=== PATIENT | female | born 2005 | race Caucasian/White ===

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

== ENCOUNTER 2025-04-24 05:32 | Inpatient (IN) | payer MEDICARE, MEDICAID ==
[~2025-04-24] VITALS: Ht 152.4 cm; Wt 95.7 kg
[~2025-04-24 05:32] MED LIST changes: +ONDA-104 PO
[2025-04-24] MEDS ORDERED: GuaiFENesin/D-METHORPHAN [SUGAR-FREE] 200-20MG/10 ML SYRUP UDCUP PO PRN (15:30)
[2025-04-24] MEDS ORDERED: OLANZapine 5 MG RAPDIS TABLET PO PRN (15:30)
[2025-04-24] MEDS ORDERED: LORazepam 2 MG TABLET PO PRN ×2 (15:30)
[2025-04-24] MEDS ORDERED: LOPERAMIDE HCL 2 MG CAPSULE PO PRN (15:30)
[2025-04-24] MEDS ORDERED: ZOLPIDEM TARTRATE 10 MG TABLET PO PRN ×3 (15:30)
[2025-04-24] MEDS ORDERED: MAG HYDROX/ALUMINUM HYD/SIMETH ES 30 ML SUSPENSION UDCUP PO PRN (15:30)
[2025-04-24] MEDS ORDERED: HydrOXYzine PAMOATE 50 MG CAPSULE PO PRN (15:30)
[2025-04-24] MEDS ORDERED: MAGNESIUM HYDROXIDE SUSPENSION 30 ML UDCUP PO PRN (15:30)
[2025-04-24] MEDS ORDERED: BENZ-247 PO (15:32)
[2025-04-24] MEDS ORDERED: HYDR-3831 PO (15:32)
[2025-04-24] MEDS ORDERED: FLUO20CA30 PO (15:32)
[2025-04-24] MEDS ORDERED: CARI4.5C PO (15:32)
[2025-04-24 16:50] VITALS: BP 121/73; PULSE 69; RESP 18; TEMP 98.2; O2SAT 99
[2025-04-24 16:52] VITALS: BP 120/78; PULSE 68; RESP 18; TEMP 97.6; O2SAT 97
[2025-04-24] MEDS: THIAMINE 100 MG TABLET PO SCH (16:54)
[2025-04-24] MEDS ORDERED: PNEUMOCOCCAL VACCINE POLYVALENT 0.5 ML SYRINGE [PPSV23] IM. ONE (19:00)
[2025-04-24] MEDS: MELATONIN 5 MG TABLET PO SCH (20:05)
[2025-04-24] MEDS: OLANZapine 5 MG RAPDIS TABLET PO SCH (20:05)
[2025-04-24 20:22] VITALS: BP 102/60; PULSE 67; RESP 16; TEMP 97.9; O2SAT 99
[2025-04-25 08:36] VITALS: BP 107/60; PULSE 72; RESP 18; TEMP 97.4; O2SAT 72
[2025-04-25] MEDS: FLUoxetine HCL 20 MG CAPSULE PO SCH (08:59)
[2025-04-25] MEDS: FOLIC ACID 1 MG TABLET PO SCH (08:59)
[2025-04-25] MEDS: MULTIVITAMINS WITH MINERALS, THERAPEUTIC TABLET PO SCH (08:59)
[2025-04-25 09:46] LABS: BASOPHILS % (AUTO) 0.5 % (0.0-2.0); EOSINOPHILS % (AUTO) 2.8 % (1.0-6.0); HEMATOCRIT 39.8 % (36-46); HEMOGLOBIN 13.2 g/dL (12.0-16.0); LYMPHOCYTES # (AUTO) 2.2 K/uL (1.0-4.8); LYMPHOCYTES % (AUTO) 24.5 % (22.0-44.0); MEAN CORPUSCULAR HEMOGLOBIN 28.6 pg (26.0-34.0); MEAN CORPUSCULAR HGB CONC 33.1 G/dL (31.0-37.0); MEAN CORPUSCULAR VOLUME 87 fL (80-100); MONOCYTES # (AUTO) 0.5 K/uL (0.1-1.0); MONOCYTES % (AUTO) 5.3 % (2.0-9.0); NEUTROPHILS # (AUTO) 6.1 K/uL (1.8-7.7); NEUTROPHILS % (AUTO) 66.9 % (40.0-70.0); PLATELET COUNT (AUTO) 276 K/uL (150-450); RED BLOOD CELL COUNT(AUTO) 4.59 MIL/uL (4.00-5.20); RED CELL DISTRIBUTION WIDTH 14.4 % (11.5-14.5); WHITE BLOOD COUNT (AUTO) 9.1 K/uL (4.5-11.0)
[2025-04-25 10:01] LABS: APPEARANCE,URINE CLEAR (CLEAR); BILIRUBIN,URINE NEGATIVE (NEGATIVE); COLOR,URINE LIGHT YELLOW (YELLOW); GLUCOSE, URINE (UA) NEGATIVE (NEGATIVE); KETONES,URINE NEGATIVE (NEGATIVE); LEUKOCYTE ESTERASE ,URINE TRACE (NEGATIVE); NITRATE,URINE NEGATIVE (NEGATIVE); OCCULT BLOOD,URINE NEGATIVE (NEGATIVE); PROTEIN,URINE NEGATIVE (NEGATIVE); SPECIFIC GRAVITIY, URINE 1.017 (1.003-1.030); UROBILINOGEN,URINE <=1.0 mg/dL (<=1.0)
[2025-04-25 10:04] LABS: PREGNANCY RESULT, SERUM NEGATIVE (NEGATIVE)
[2025-04-25 10:06] LABS: BACTERIA,URINE None Seen /HPF (None Seen); RBC,URINE None Seen /HPF (0-2); SQUAMOUS EPITHELIAL CELL,UR Rare /LPF (None Seen); WBC,URINE 0-2 /HPF (0-5)
[2025-04-25 10:08] LABS: ALCOHOL, URINE DRUG SCREEN NEGATIVE (NEGATIVE); AMPHET/METH SCREEN,URINE NEGATIVE (NEGATIVE); BARBITURATE SCREEN, URINE NEGATIVE (NEGATIVE); BENZODIAZEPINES SCREEN,URINE NEGATIVE (NEGATIVE); CANNABINOID SCREEN,URINE NEGATIVE (NEGATIVE); COCAINE SCREEN,URINE NEGATIVE (NEGATIVE); METHADONE SCREEN, URINE NEGATIVE (NEGATIVE); OPIATE SCREEN,URINE NEGATIVE (NEGATIVE); PHENCYCLIDINE SCREEN,URINE NEGATIVE (NEGATIVE)
[2025-04-25 10:15] LABS: HEMOGLOBIN A1C 5.2 % (3.8-5.6)
[2025-04-25 10:23] LABS: ALANINE AMINOTRANSFERASE 18 U/L (12-78); ALBUMIN 3.1 g/dL (3.4-5.0); ALKALINE PHOSPHATASE 67 U/L (46-116); ANION GAP 7 mmol/L (8-16); ASPARTATE AMINOTRANSFERASE 13 U/L (15-37); BILIRUBIN,TOTAL 0.2 mg/dL (0.1-1.0); CALCIUM, TOTAL 8.7 mg/dL (8.8-10.5); CARBON DIOXIDE 28 mmol/L (22-29); CHLORIDE 103 mmol/L (98-107); CHOLESTEROL 162 mg/dL (131-200); CREATININE 0.83 mg/dL (0.60-1.30); FREE T4 (FREE THYROXINE) 0.78 ng/dL (0.76-1.46); GLOMERULAR FILTR. RATE CALC > 60 mL/min (>60); GLUCOSE,RANDOM 164 mg/dL (70-110); HCG,QUANTITATIVE < 1 mIU/mL (0-6); HDL CHOLESTEROL 41 mg/dL (40-60); LDL CHOL (CALC.) 98 mg/dL (0-130); POTASSIUM 3.7 mmol/L (3.5-5.1); SODIUM SERUM 138 mmol/L (136-145); T4 (THYROXINE) 6.8 mcg/dL (4.7-13.3); THYROID STIMULATING HORMONE 2.82 uIU/mL (0.36-3.74); TOTAL PROTEIN, SERUM 6.4 g/dL (6.4-8.2); TRIGLYCERIDES 116 mg/dL (15-150); UREA NITROGEN, BLOOD 11 mg/dL (7-18)
[2025-04-25 17:30] LABS: RAPID PLASMA REAGIN NONREACTIVE (NONREACTIVE)
[2025-04-25] MEDS: LURASIDONE HCL 40 MG TABLET PO SCH (20:21)
[2025-04-25] MEDS: LURASIDONE HCL 20 MG TABLET PO PRN (20:21)
[2025-04-25 21:17] VITALS: BP 104/64; PULSE 80; RESP 18; TEMP 97.6; O2SAT 99
[2025-04-26 08:36] VITALS: BP 111/59; PULSE 80; RESP 16; TEMP 98.2; O2SAT 100
[2025-04-26] MEDS: TUBERCULIN, PURIFIED PROTEIN DERIVATIVE 5 TU/0.1 ML SYRINGE ID ONE (14:29)
[2025-04-26 20:00] VITALS: BP 112/68; PULSE 76; RESP 17; TEMP 97.6; O2SAT 98
[2025-04-26] MEDS: haloperidoL 5 MG TABLET PO PRN (20:00)
[2025-04-26] MEDS: LURASIDONE HCL 60 MG TABLET PO SCH (20:02)
[2025-04-27 08:22] VITALS: BP 107/60; PULSE 79; RESP 16; TEMP 98.2; O2SAT 99
[2025-04-27] MEDS: FLUoxetine HCL 20 MG CAPSULE PO SCH (08:36)
[2025-04-27] MEDS: ATOMOXETINE HCL 18 MG CAPSULE PO SCH (08:37)
[2025-04-27] MEDS ORDERED: ATOMOXETINE HCL 10 MG CAPSULE PO SCH (09:00)
[2025-04-27 20:57] VITALS: BP 114/64; PULSE 88; RESP 16; TEMP 97.2; O2SAT 100
[2025-04-28 08:19] VITALS: BP 134/78; PULSE 92; RESP 16; TEMP 97.7; O2SAT 98
[2025-04-28 20:33] VITALS: BP 114/81; PULSE 87; RESP 16; TEMP 97.7; O2SAT 99
[2025-04-29 08:25] VITALS: BP 125/89; PULSE 66; RESP 17; TEMP 97.3; O2SAT 97
[2025-04-29 21:47] VITALS: BP 117/71; PULSE 83; RESP 17; O2SAT 99
[2025-04-30 08:14] VITALS: BP 101/60; PULSE 81; RESP 16; TEMP 97.3; O2SAT 96
[2025-04-30 09:15] VITALS: RESP 17; O2SAT 98
[2025-04-30] MEDS: ACETAMINOPHEN 325 MG TABLET PO PRN (09:15)
[2025-04-30 10:15] VITALS: RESP 16; O2SAT 97
[2025-04-30 20:40] VITALS: BP 103/66; RESP 20; TEMP 97.7
[2025-05-01 07:29] VITALS: BP 127/66; PULSE 127; RESP 18; TEMP 97.9; O2SAT 97
[2025-05-01 08:21] VITALS: BP 129/53; PULSE 90; RESP 16; TEMP 97.6; O2SAT 97
[2025-05-01] MEDS: LORazepam 1 MG TABLET PO PRN (10:17)
[2025-05-01 11:13] VITALS: BP 128/80; PULSE 78; RESP 16; TEMP 97.3; O2SAT 98
[2025-05-01] MEDS ORDERED: FLUO-418 PO (14:35)
[2025-05-01] MEDS ORDERED: LURA60TA PO (14:35)
[2025-05-01] MEDS ORDERED: MELA5TAB40 PO (14:35)
[2025-05-01] MEDS ORDERED: ATOM25CA8 PO (14:35)
[2025-05-01 18:10] VITALS: BP 112/74; PULSE 83; RESP 16; TEMP 97.8; O2SAT 98
[2025-05-01 19:10] VITALS: RESP 16
[2025-05-01 20:25] VITALS: BP 131/87; PULSE 88; RESP 16; TEMP 97.5; O2SAT 100
[2025-05-02 10:47] VITALS: BP 122/75; PULSE 80; RESP 17; TEMP 97.7
[2025-05-02 11:47] VITALS: BP 116/69; PULSE 76; RESP 16; TEMP 98
[2025-05-02] MEDS: ATOMOXETINE HCL 25 MG CAPSULE PO SCH (14:10)
[2025-05-02] MEDS: LURASIDONE HCL 80 MG TABLET PO SCH (21:03)
[2025-05-02 22:15] VITALS: RESP 18
[2025-05-03 10:31] VITALS: BP 124/68; PULSE 75; RESP 19; TEMP 98; O2SAT 98
[2025-05-03 11:17] VITALS: BP 121/67; PULSE 85; RESP 18; TEMP 97.9; O2SAT 100
[2025-05-03] MEDS: LURASIDONE HCL 20 MG TABLET PO SCH (22:24)
[2025-05-03 22:52] VITALS: BP_SYST 110; BP_DIAS 70; BP_DIAS 71; PULSE 76; PULSE 85; RESP 16; RESP 18; TEMP 97.5; O2SAT 100; O2SAT 99
[2025-05-03 23:33] VITALS: BP 106/60; PULSE 80; RESP 18; TEMP 97.9; O2SAT 100
[2025-05-04 05:33] VITALS: BP 100/63; PULSE 78; RESP 16; TEMP 97.5; O2SAT 100
[2025-05-04] MEDS: FLUoxetine HCL 20 MG CAPSULE PO SCH (09:54)
[2025-05-04] MEDS: NEOMYCIN/POLYMYXIN B/HYDROCORT 10 ML OTIC SOLUTION AU SCH (09:56)
[2025-05-04 10:17] VITALS: BP 106/72; PULSE 77; RESP 17; TEMP 97.8; O2SAT 98
[2025-05-04] MEDS: NYSTATIN 500,000 UNITS/5 ML SUSPENSION UDCUP PO SCH (21:32)
[2025-05-04 22:09] VITALS: BP 115/60; PULSE 88; RESP 16; TEMP 98.3; O2SAT 98
[2025-05-05 07:02] VITALS: BP 108/65; PULSE 72; RESP 16; TEMP 97.7; O2SAT 99
[2025-05-05 20:36] VITALS: BP 131/79; PULSE 68; RESP 17; TEMP 97.9; O2SAT 96
[2025-05-05] MEDS: PROMETHAZINE HCL 25 MG TABLET PO PRN (21:41)
[2025-05-06 10:55] VITALS: BP 114/83; PULSE 84; RESP 17; TEMP 98.1; O2SAT 97
[2025-05-06 20:30] VITALS: BP 115/62; PULSE 79; RESP 17; TEMP 97.8; O2SAT 98
[2025-05-07 10:23] VITALS: BP 126/92; PULSE 94; RESP 16; TEMP 98.2; O2SAT 99
[2025-05-07 14:04] VITALS: BP 122/90; PULSE 94; RESP 17; TEMP 98.2; O2SAT 99
[2025-05-07 15:04] VITALS: BP 118/87; PULSE 90; RESP 18; TEMP 98.4; O2SAT 98
[2025-05-07 20:30] VITALS: BP 115/75; PULSE 93; RESP 18; TEMP 98; O2SAT 99
[2025-05-08 10:18] VITALS: BP 115/71; PULSE 75; RESP 18; TEMP 97.8; O2SAT 98
[2025-05-08] MEDS: LURASIDONE HCL 60 MG TABLET PO SCH (21:36)
[2025-05-08 22:00] VITALS: BP 117/83; PULSE 72; RESP 16; TEMP 97.8; O2SAT 98
[2025-05-09] MEDS: ATOMOXETINE HCL 40 MG CAPSULE PO SCH (09:32)
[2025-05-09] MEDS: FLUoxetine HCL 20 MG CAPSULE PO SCH (09:34)
[2025-05-09 14:33] VITALS: BP 107/75; PULSE 98; RESP 17; TEMP 97
[2025-05-09 22:55] VITALS: BP 101/57; PULSE 77; RESP 18; TEMP 97.7; O2SAT 100
[2025-05-10] MEDS ORDERED: ATOM40CA9 PO (06:45)
[2025-05-10 12:43] VITALS: BP 130/67; PULSE 80; RESP 20; TEMP 96.8
[2025-05-10 20:25] VITALS: BP 106/76; PULSE 78; RESP 18; TEMP 97.3; O2SAT 99
[2025-05-11] MEDS ORDERED: MULT-1303 PO (09:02)
[2025-05-11] MEDS ORDERED: CORTSOL AU (09:04)
[2025-05-11] MEDS ORDERED: NYST100033 PO (09:08)
[2025-05-11] MEDS ORDERED: MELA5TAB40 PO (09:57)
[2025-05-11] MEDS ORDERED: ATOM40CA9 PO (09:57)
[2025-05-11] MEDS ORDERED: LURA60TA PO (09:57)
[2025-05-11] MEDS ORDERED: FLUO-418 PO (09:57)
[2025-05-11 10:51] VITALS: BP 127/91; PULSE 90; RESP 19; TEMP 97.3; O2SAT 95
== END 2025-05-11 13:47 | disposition home or self-care (01) | DRG 885 ==
LOC: B3A 14:58 → 3EI 05-01 23:42 → 3EX 05-03 23:21
PROVIDERS: ADMIT Psychiatry & Neurology Psychiatry; ATTEND Psychiatry & Neurology Psychiatry
PROC: GZHZZZZ Group Psychotherapy (ICD-10-PCS; principal; 2025-04-24)
PROC: GZ56ZZZ Individual Psychotherapy, Supportive (ICD-10-PCS; 2025-04-24)
PROC: GZ58ZZZ Individual Psychotherapy, Cognitive-Behavioral (ICD-10-PCS; 2025-04-24)
DX: F25.0 Schizoaffective disorder, bipolar type (principal); R45.851 Suicidal ideations; Z68.41 Body mass index [BMI] 40.0-44.9, adult; E66.9 Obesity, unspecified; F41.9 Anxiety disorder, unspecified; F43.10 Post-traumatic stress disorder, unspecified; J45.909 Unspecified asthma, uncomplicated; F64.0 Transsexualism; Z63.4 Disappearance and death of family member; Z59.9 Problem related to housing and economic circumstances, unspecified; Z65.3 Problems related to other legal circumstances; Z55.9 Problems related to education and literacy, unspecified; Z79.899 Other long term (current) drug therapy
CPT/HCPCS: 80053; 80061; 80307; 81001; 83036; 84436; 84439; 84443; 84702; 84703; 85025; 86592; 87389; 92610; G0378

== ENCOUNTER 2025-04-26 21:19 | Emergency (ER) | payer MEDICARE, OTHER ==
[~2025-04-26] VITALS: Ht 152.4 cm; Wt 96.0 kg
[~2025-04-26 21:19] MED LIST changes: -ALBU17AE27; -AMOX250S7 PO; +BENZ-247 PO; +CARI4.5C PO; +FLUO20CA30 PO; +HYDR-3831 PO; -MAPAP160 MG/5 M PO; -MOTRIN; -ONDA-104 PO; -PROM118S5 PO; -[UNRECOGNIZED DRUG - OTHER]
[2025-04-26 22:35] VITALS: TEMP 98.205296
[2025-04-27 01:35] VITALS: BP 102/61; PULSE 80; RESP 17; O2SAT 100
== END 2025-04-27 02:13 | disposition short-term general hospital (02) ==
LOC: EMS 21:19
DX: S00.93XA Contusion of unspecified part of head, initial encounter (principal); F32.A Depression, unspecified; Z79.899 Other long term (current) drug therapy; W22.01XA Walked into wall, initial encounter; Y93.89 Activity, other specified; Y92.89 Other specified places as the place of occurrence of the external cause; Y99.8 Other external cause status
CPT/HCPCS: 99283; Z7502

== ENCOUNTER 2025-07-18 17:17 | Inpatient (IN) | payer MEDICARE, MEDICAID ==
[~2025-07-18] VITALS: Ht 152.4 cm; Wt 93.9 kg
[~2025-07-18 17:17] MED LIST changes: +ATOM40CA9 PO; -BENZ-247 PO; -CARI4.5C PO; +CORTSOL AU; +FLUO-418 PO; -FLUO20CA30 PO; -HYDR-3831 PO; +LURA60TA PO; +MELA5TAB40 PO; +MULT-1303 PO
[2025-07-18 19:55] LABS: PLATELET COUNT (AUTO) 304 K/uL (150-450); RED BLOOD CELL COUNT(AUTO) 4.81 MIL/uL (4.00-5.20); RED CELL DISTRIBUTION WIDTH 13.2 % (11.5-14.5); WHITE BLOOD COUNT (AUTO) 8.4 K/uL (4.5-11.0)
[2025-07-18 19:56] LABS: CALCIUM, TOTAL 9.0 mg/dL (8.8-10.5); CREATININE 0.98 mg/dL (0.60-1.30); GLOMERULAR FILTR. RATE CALC > 60 mL/min (>60); GLUCOSE,RANDOM 97 mg/dL (70-110); SODIUM SERUM 138 mmol/L (136-145); UREA NITROGEN, BLOOD 11 mg/dL (7-18)
[2025-07-18 20:43] LABS: COVID AG,FIA SOURCE NASAL SWAB
[2025-07-18] MEDS ORDERED: LORazepam 2 MG/ML VIAL IM ONE (20:45)
[2025-07-18 20:47] LABS: APPEARANCE,URINE CLEAR (CLEAR); GLUCOSE, URINE (UA) NEGATIVE (NEGATIVE); LEUKOCYTE ESTERASE ,URINE NEGATIVE (NEGATIVE); NITRATE,URINE NEGATIVE (NEGATIVE); OCCULT BLOOD,URINE MODERATE (NEGATIVE); PH,URINE DRUG SCREEN 5.5 (5.0-8.0); SPECIFIC GRAVITIY, URINE 1.021 (1.003-1.030)
[2025-07-18 20:54] LABS: ALCOHOL, URINE DRUG SCREEN NEGATIVE (NEGATIVE); AMPHET/METH SCREEN,URINE NEGATIVE (NEGATIVE); BARBITURATE SCREEN, URINE NEGATIVE (NEGATIVE); CANNABINOID SCREEN,URINE NEGATIVE (NEGATIVE); COCAINE SCREEN,URINE NEGATIVE (NEGATIVE); METHADONE SCREEN, URINE NEGATIVE (NEGATIVE)
[2025-07-18 20:58] LABS: SQUAMOUS EPITHELIAL CELL,UR Few /LPF (None Seen)
[2025-07-18 21:05] LABS: SARS-COV2 (COVID) ANTIGEN,FIA Negative (Negative)
[2025-07-18 23:50] VITALS: O2SAT 98
[2025-07-19] MEDS ORDERED: PROMETHAZINE HCL 25 MG TABLET PO PRN (00:15)
[2025-07-19] MEDS ORDERED: ZOLPIDEM TARTRATE 10 MG TABLET PO PRN (00:45)
[2025-07-19 02:42] VITALS: BP 116/93; PULSE 77; RESP 18; TEMP 97.7; O2SAT 100
[2025-07-19] MEDS ORDERED: MAGNESIUM HYDROXIDE SUSPENSION 30 ML UDCUP PO PRN (06:00)
[2025-07-19] MEDS ORDERED: ONDANSETRON 4 MG TABLET PO PRN (06:00)
[2025-07-19] MEDS ORDERED: ALBUTEROL SULFATE HFA 90 MCG/PUFF 8 GM INHALER IH PRN (06:00)
[2025-07-19] MEDS ORDERED: GuaiFENesin/D-METHORPHAN [SUGAR-FREE] 200-20MG/10 ML SYRUP UDCUP PO PRN (06:00)
[2025-07-19] MEDS ORDERED: NICOTINE 14 MG/24 HOUR PATCH TD PRN (06:00)
[2025-07-19] MEDS ORDERED: DOCUSATE SODIUM 100 MG CAPSULE PO PRN (06:00)
[2025-07-19] MEDS ORDERED: MAG HYDROX/ALUMINUM HYD/SIMETH ES 30 ML SUSPENSION UDCUP PO PRN (06:00)
[2025-07-19] MEDS ORDERED: ACETAMINOPHEN 325 MG TABLET PO PRN (06:00)
[2025-07-19] MEDS ORDERED: PETROLATUM,WHITE 28 GM JELLY TP PRN (06:00)
[2025-07-19] MEDS ORDERED: IBUPROFEN 400 MG TABLET PO PRN (06:00)
[2025-07-19] MEDS ORDERED: LOPERAMIDE HCL 2 MG CAPSULE PO PRN (06:00)
[2025-07-19 08:12] VITALS: BP 115/73; PULSE 84; RESP 18; TEMP 97.7; O2SAT 100
[2025-07-19] MEDS: MULTIVITAMINS WITH MINERALS, THERAPEUTIC TABLET PO SCH (08:48)
[2025-07-19] MEDS: LURASIDONE HCL 60 MG TABLET PO SCH (16:50)
[2025-07-19] MEDS: MELATONIN 5 MG TABLET PO SCH (21:02)
[2025-07-19 22:03] VITALS: RESP 18; TEMP 98.1
[2025-07-20 08:30] VITALS: BP 115/74; PULSE 92; RESP 18; TEMP 98.1; O2SAT 98
[2025-07-20] MEDS: ATOMOXETINE HCL 40 MG CAPSULE PO SCH (08:30)
[2025-07-20 13:13] LABS: CHOL/HDL RATIO 3.9 (3.9-5.7); LDL CHOL (CALC.) 110.0 mg/dL (0-130)
[2025-07-20 22:06] VITALS: RESP 17; TEMP 98.2
[2025-07-21 08:47] VITALS: BP 123/83; PULSE 94; RESP 17; TEMP 98.3; O2SAT 99
[2025-07-21 23:49] VITALS: BP 109/78; PULSE 91; RESP 18; TEMP 98.6; O2SAT 98
[2025-07-22 08:47] VITALS: BP 122/60; PULSE 90; RESP 18; TEMP 98.4; O2SAT 100
[2025-07-22 23:29] VITALS: BP 114/77; PULSE 81; RESP 18; TEMP 98.1; O2SAT 98
[2025-07-23 09:52] VITALS: BP 127/76; PULSE 87; RESP 18; O2SAT 98
[2025-07-23 20:13] VITALS: BP 106/64; PULSE 80; RESP 18; TEMP 98.1; O2SAT 98
[2025-07-24 10:20] VITALS: BP 96/51; PULSE 90; RESP 16; O2SAT 100
[2025-07-24 20:11] VITALS: BP 110/68; PULSE 86; RESP 17; TEMP 98.2; O2SAT 99
[2025-07-25 12:22] VITALS: BP 105/62; PULSE 97; RESP 18; TEMP 97.7; O2SAT 100
[2025-07-25 20:30] VITALS: BP 131/66; PULSE 68; RESP 19; TEMP 98; O2SAT 98
[2025-07-26 09:28] VITALS: BP 102/67; PULSE 90; RESP 16; TEMP 98.1; O2SAT 100
[2025-07-26 20:00] VITALS: BP 105/52; PULSE 79; RESP 18; TEMP 97.7; O2SAT 98
[2025-07-26] MEDS: DIVALPROEX SODIUM 500 MG DR TABLET PO SCH (20:50)
[2025-07-27 06:51] VITALS: BP 111/70; PULSE 82; RESP 18; TEMP 98.6; O2SAT 100
[2025-07-27 11:23] VITALS: BP 106/73; PULSE 76; RESP 18; TEMP 97.5; O2SAT 100
[2025-07-27 20:23] VITALS: BP 99/55; PULSE 65; RESP 18; TEMP 97.6; O2SAT 97
[2025-07-28 10:36] VITALS: BP 109/60; PULSE 92; RESP 18; TEMP 97.6; O2SAT 99
[2025-07-28 20:00] VITALS: BP 114/79; PULSE 86; RESP 18; TEMP 98; O2SAT 99
[2025-07-29 09:40] VITALS: BP 112/60; PULSE 87; RESP 18; TEMP 97.3; O2SAT 100
[2025-07-29 22:05] VITALS: BP 110/24; PULSE 65; RESP 16; TEMP 97.8; O2SAT 98
[2025-07-30 10:07] VITALS: BP 125/80; PULSE 94; RESP 16; TEMP 97.7; O2SAT 98
[2025-07-30 20:22] VITALS: BP 110/69; PULSE 78; RESP 18; TEMP 97.1; O2SAT 100
[2025-07-31 09:49] VITALS: BP 126/84; PULSE 70; RESP 18; TEMP 97.5; O2SAT 100
[2025-07-31] MEDS ORDERED: MELA5TAB40 PO (12:31)
[2025-07-31] MEDS ORDERED: ATOM40CA9 PO (12:31)
[2025-07-31] MEDS ORDERED: DIVA-112 PO (12:31)
[2025-07-31] MEDS ORDERED: FLUO-418 PO (12:31)
[2025-07-31] MEDS ORDERED: LURA60TA PO (12:31)
== END 2025-07-31 15:50 | disposition home or self-care (01) | DRG 885 ==
LOC: EMS 17:18 → 3EI 07-19 01:17
PROVIDERS: ADMIT Psychiatry & Neurology Psychiatry; ATTEND Psychiatry & Neurology Psychiatry
PROC: GZHZZZZ Group Psychotherapy (ICD-10-PCS; principal; 2025-07-19)
PROC: GZ52ZZZ Individual Psychotherapy, Cognitive (ICD-10-PCS; 2025-07-25)
DX: F25.0 Schizoaffective disorder, bipolar type (principal); R45.851 Suicidal ideations; Z68.41 Body mass index [BMI] 40.0-44.9, adult; E66.9 Obesity, unspecified; G47.00 Insomnia, unspecified; S91.012A Laceration without foreign body, left ankle, initial encounter; S61.512A Laceration without foreign body of left wrist, initial encounter; F90.9 Attention-deficit hyperactivity disorder, unspecified type; I10 Essential (primary) hypertension; X58.XXXA Exposure to other specified factors, initial encounter; F41.9 Anxiety disorder, unspecified; Y28.9XXA Contact with unspecified sharp object, undetermined intent, initial encounter; Z20.822 Contact with and (suspected) exposure to COVID-19; Z79.899 Other long term (current) drug therapy; Y93.89 Activity, other specified; Y92.89 Other specified places as the place of occurrence of the external cause; Y99.8 Other external cause status; Z88.8 Allergy status to other drugs, medicaments and biological substances
CPT/HCPCS: 80048; 80061; 80307; 81001; 83036; 84443; 84703; 85025; 99285; G0480